=== PATIENT | female | born 1975 | race Caucasian/White ===

== ENCOUNTER 2022-02-25 04:09 | Day surgery (SDC) | payer OTHER ==
[2022-02-20 10:39] VITALS: BMI 24.2
[2022-02-25] MEDS ORDERED: MIDAZOLAM HCL 2 MG/2 ML SINGLE DOSE VIAL ONE (10:50)
[2022-02-25] MEDS ORDERED: KETOROLAC TROMETHAMINE 30 MG/1 ML VIAL ONE (11:16)
[2022-02-25] MEDS ORDERED: DEXAMETHASONE SOD PHOSPHATE 4 MG/1 ML VIAL ONE (11:16)
[2022-02-25] MEDS ORDERED: LIDOCAINE HCL/PF 2% SDV 5ML VIAL ONE (11:16)
[2022-02-25] MEDS ORDERED: oxyCODONE HCL 5 MG TABLET PO PRN ×2 (11:33→12:20)
[2022-02-25] MEDS ORDERED: ONDANSETRON 4 MG/2 ML VIAL IVPUSH PRN ×2 (11:33→12:20)
[2022-02-25] MEDS ORDERED: LACTATED RINGERS SOLUTION 1,000 ML IV SCH (11:45)
[2022-02-25] MEDS ORDERED: IBUPROFEN 800 MG/8 ML IJ IVPB PRN (12:20)
[2022-02-25] MEDS ORDERED: IBUPROFEN 600 MG TABLET (FP) PO PRN (12:20)
[2022-02-25] MEDS ORDERED: ELECTROLYTE-148 SOLN 1,000 ML IV SCH (12:30)
[2022-02-25 12:36] VITALS: RESP 18
[2022-02-25 14:14] VITALS: BP 117/66; PULSE 71; TEMP 97.5
== END 2022-02-25 14:52 | disposition home or self-care (01) ==
LOC: JASU-SURG 04:09
PROVIDERS: ATTEND Obstetrics & Gynecology
PROC: 0UDB7ZX Extraction of Endometrium, Via Natural or Artificial Opening, Diagnostic (ICD-10-PCS; 2022-02-25)
PROC: 0UB98ZX Excision of Uterus, Via Natural or Artificial Opening Endoscopic, Diagnostic (ICD-10-PCS; principal; 2022-02-25 11:00)
DX: N93.8 Other specified abnormal uterine and vaginal bleeding (principal); N84.0 Polyp of corpus uteri
CPT/HCPCS: 81025; 88305-TC; 94760